=== PATIENT | female | born 1995 | race Caucasian/White ===

== ENCOUNTER 2023-09-09 01:13 | Emergency (ER) | payer MEDICAID ==
[~2023-09-09] VITALS: Ht 165.1 cm; Wt 97.7 kg
[2023-09-09 01:17] VITALS: BP 118/62; PULSE 63; RESP 16; TEMP 98.2; O2SAT 99
[2023-09-09] MEDS ORDERED: amoxicillin 250mg capsule PO ONE (02:35)
[2023-09-09] MEDS ORDERED: AMOX500C2 PO (02:36)
== END 2023-09-09 02:49 | disposition home or self-care (01) ==
LOC: ER 01:15
DX: K08.89 Other specified disorders of teeth and supporting structures (principal); Z79.2 Long term (current) use of antibiotics
CPT/HCPCS: 99283